=== PATIENT | male | born 1985 | race Caucasian/White ===

== ENCOUNTER → 2016-09-04 | Outpatient (REF) | payer BC, OTHER ==
[~2016-09-04] MED LIST: /AUGM875TA; IBUP800T; No Historical Meds; VICO5TAB
== END ==
LOC: M LAB REF 17:09
PROVIDERS: ATTEND Nurse Practitioner Adult Health
DX: N52.9 Male erectile dysfunction, unspecified (principal)

== ENCOUNTER 2019-01-17 03:17 | Emergency (ER) | payer BC ==
[~2019-01-17] VITALS: Ht 172.7 cm; Wt 90.9 kg
[2019-01-17] MEDS ORDERED: SILD20TA11 PO (03:43)
[2019-01-17] MEDS ORDERED: KETOROLAC 60 MG/2 ML VIAL (J1885) IM ONE (03:45)
[2019-01-17 04:46] LABS: INFLUENZA A AMPLIFICATION NEGATIVE (NEGATIVE); INFLUENZA B AMPLIFICATION NEGATIVE (NEGATIVE)
[2019-01-17] MEDS ORDERED: GI COCKTAIL 50ML BTL(HYOSCYAMINE/MAALOX/LIDOCAINE VISCOUS)(1:3:1) PO ONE (05:15)
[2019-01-17 05:33] VITALS: BP 100/58
--- NOTE | 2019-01-17 06:10 | REP ---
Clinical: Cough . Comparison: 03/09/2009 . Technique: PA and lateral. Findings: The mediastinum and cardiac silhouette are normal. The lung rayo are clear and without acute consolidation, effusion, or pneumothorax. The skeletal structures are intact and normal. Impression: 1. No acute cardiopulmonary process. Electronically Signed by Hussain Ramirez MD 01/17/2019 06:01 A
== END 2019-01-17 05:40 | disposition home or self-care (01) ==
LOC: M ED 03:17
DX: B34.9 Viral infection, unspecified (principal); J02.9 Acute pharyngitis, unspecified; R05 Cough; H92.09 Otalgia, unspecified ear; F17.200 Nicotine dependence, unspecified, uncomplicated; Z88.5 Allergy status to narcotic agent; Z91.040 Latex allergy status; Z79.899 Other long term (current) drug therapy; Z79.2 Long term (current) use of antibiotics
CPT/HCPCS: 71046; 87502; 87880; 96372; 99284; J1885

== ENCOUNTER → 2024-05-30 | Outpatient (CLI) | payer OTHER, SELFPAY ==
[~2024-05-30] MED LIST changes: +SILD20TA11 PO
== END ==
LOC: M OUTALCOH 07:29
PROVIDERS: ATTEND Psychiatry & Neurology Psychiatry
DX: F11.20 Opioid dependence, uncomplicated (principal); F15.20 Other stimulant dependence, uncomplicated

== ENCOUNTER → 2024-06-15 | Outpatient (RCR) | payer OTHER | LOC: M OUTALCOH 06-06 13:45 | PROVIDERS: ATTEND Psychiatry & Neurology Psychiatry | DX: F11.20 Opioid dependence, uncomplicated (principal); F15.20 Other stimulant dependence, uncomplicated ==

== ENCOUNTER 2024-08-24 16:00 | Outpatient (RCR) | payer OTHER | END 2024-09-15 | LOC: M OUTALCOH 16:00 | PROVIDERS: ATTEND Psychiatry & Neurology Psychiatry | DX: F11.20 Opioid dependence, uncomplicated (principal); F15.20 Other stimulant dependence, uncomplicated ==

== ENCOUNTER 2024-08-25 07:41 | Emergency (ER) | payer OTHER ==
[~2024-08-25] VITALS: Ht 172.7 cm; Wt 94.4 kg
[2024-08-25 07:50] VITALS: BP 116/79; TEMP 97.7; O2SAT 99
== END 2024-08-25 11:31 | disposition left against medical advice (07) ==
LOC: M ED 07:41
DX: Z53.21 Procedure and treatment not carried out due to patient leaving prior to being seen by health care provider (principal)

== ENCOUNTER → 2024-12-28 | Outpatient (CLI) | payer OTHER ==
[~2024-12-28] MED LIST changes: -SILD20TA11 PO; +SILD20TA64 PO
== END ==
LOC: M OUTALCOH 12:17
PROVIDERS: ATTEND Psychiatry & Neurology Psychiatry
DX: F11.20 Opioid dependence, uncomplicated (principal); F14.10 Cocaine abuse, uncomplicated; F17.200 Nicotine dependence, unspecified, uncomplicated

== ENCOUNTER 2025-01-11 08:40 | Outpatient (RCR) | payer OTHER | END 2025-01-15 | LOC: M OUTALCOH 08:40 | PROVIDERS: ATTEND Psychiatry & Neurology Psychiatry | DX: F11.20 Opioid dependence, uncomplicated (principal); F14.10 Cocaine abuse, uncomplicated; F17.200 Nicotine dependence, unspecified, uncomplicated ==

== ENCOUNTER 2025-02-13 09:57 | Outpatient (RCR) | payer OTHER | END 2025-02-15 | LOC: M OUTALCOH 09:57 | PROVIDERS: ATTEND Psychiatry & Neurology Psychiatry | DX: F14.20 Cocaine dependence, uncomplicated (principal); F17.200 Nicotine dependence, unspecified, uncomplicated ==